=== PATIENT | female | born 1955 | race Caucasian/White ===

== ENCOUNTER → 2016-03-04 | Outpatient (CLI) | payer OTHER ==
--- NOTE | 2016-03-04 15:16 | US ---
EXAM DESCRIPTION: US LOWER EXTREMITY VEINS LIMITED/UNILATERAL/FOLLOW UP CLINICAL HISTORY: 60 y/o F, LOWER LIMB EDMA COMPARISON: None. FINDINGS: Grayscale, color Doppler and spectral Doppler imaging of the venous structures within the left lower extremity was performed. Static images were saved to the patient's medical record. Normal compressibility and color Doppler flow within the venous structures of the left lower extremity. IMPRESSION: Negative for DVT within the left lower extremity. Electronically signed by: Jose Maria Brewster MD 03/04/2016 15:13
== END ==
LOC: RAD 14:12
PROVIDERS: ATTEND Family Medicine
DX: R60.0 Localized edema (principal)

== ENCOUNTER → 2016-08-02 | Outpatient (CLI) | payer OTHER, SELFPAY ==
--- NOTE | 2016-08-03 08:20 | RAD ---
EXAM DESCRIPTION: Ankle,Left 3 Views CLINICAL HISTORY: 60 years, Female, PAIN COMPARISON: None. TECHNIQUE: AP/lateral/oblique of the ankle FINDINGS: No fracture, dislocation, or disruption of the ankle mortice is present. The bones are normally mineralized and without significant degenerative disease. No soft tissue abnormalities are noted. IMPRESSION: 1. Normal left ankle three views Electronically signed by: Ramesh Wei MD 08/03/2016 8:20 AM CDT
== END | disposition home or self-care (01) ==
LOC: RAD 08:38
PROVIDERS: ATTEND Orthopaedic Surgery
DX: M25.572 Pain in left ankle and joints of left foot (principal)